=== PATIENT | male | born 1995 | race Caucasian/White ===

== ENCOUNTER 2016-09-14 05:26 | Emergency (ER) | payer SELFPAY ==
[2016-09-14] MEDS ORDERED: Clindamycin CAP* 150 MG PO ONE (06:03)
[2016-09-14] MEDS ORDERED: Ibuprofen TAB* 800 MG PO ONE (06:03)
[2016-09-14 06:29] VITALS: BP 128/72
--- NOTE | 2016-09-14 06:33 | ED ---
Blaine Ambriz Erika, scribed for Clement Hoyos MD on 09/14/16 at 0608 . Throat Pain/Nasal Congestion - HPI Summary HPI Summary: Patient is a 21-year-old male presenting to the ED with a CC of constant right- sided dental pain starting at 04:50 today. Patient reports that the pain woke him from his sleep. Pain was not alleviated by Tylenol or rinsing with Listerine. Patient also states that 4-5 days ago, a filling fell out from the right side. He has not made a dental appointment, and states he has not seen a dentist in a long time. - History of Current Complaint Chief Complaint: EDDentalPain Time Seen by Provider: 09/14/16 06:01 Hx Obtained From: Patient Onset/Duration: Sudden Onset, Lasting Minutes, Still Present Severity: Moderate - Allergies/Home Medications Allergies/Adverse Reactions: Allergies Allergy/AdvReac Type Severity Reaction Status Date / Time Penicillins Allergy Unknown Verified 02/18/15 15:30 Reaction Details PMH/Surg Hx/FS Hx/Imm Hx Previously Healthy: Yes Endocrine/Hematology History: Denies: Hx Diabetes Cardiovascular History: Denies: Hx Hypertension Infectious Disease History: No Infectious Disease History: Denies: Hx Clostridium Difficile, Hx Hepatitis, Hx Human Immunodeficiency Virus (HIV), Hx of Known/Suspected MRSA, Hx Shingles, Hx Tuberculosis, Hx Known/ Suspected VRE, Hx Known/Suspected VRSA, History Other Infectious Disease, Traveled Outside the [place] in Last 30 Days - Family History Known Family History: Positive: Diabetes - Social History Alcohol Use: Rare Hx Substance Use: Yes Substance Use Type: Reports: Marijuana Hx Tobacco Use: Yes Smoking Status (MU): Former Smoker Type: Cigars Amount Used/How Often: occasional Review of Systems Positive: Dental Pain Negative: Myalgia All Other Systems Reviewed And Are Negative: Yes Physical Exam Triage Information Reviewed: Yes Vital Signs On Initial Exam: Initial Vitals Temp Pulse Resp BP Pulse Ox 99.3 F 74 18 126/79 97 09/14/16 05:31 09/14/16 05:31 09/14/16 05:31 09/14/16 05:31 09/14/16 05:31 Vital Signs Reviewed: Yes Appearance: Positive: No Pain Distress, Thin Skin: Positive: Warm Head/Face: Positive: Normal Head/Face Inspection Eyes: Positive: CELINA ENT: Positive: Hearing grossly normal Dental: Positive: Gross Decay/Caries @ Neck: Positive: Supple, Nontender Respiratory/Lung Sounds: Positive: Breath Sounds Present Neurological: Positive: Alert, Oriented to Person Place, Time Diagnostics - Vital Signs Vital Signs Temp Pulse Resp BP Pulse Ox 09/14/16 05:31 99.3 F 74 18 126/79 97 - Laboratory Lab Statement: Any lab studies that have been ordered have been reviewed, and results considered in the medical decision making process. EENT Course/Dx - Course Assessment/Plan: A 21 y/o M presents to the ED with a CC of dental pain. Pt reports a filling felt out 4-5 days ago. Pain was not alleviated by Tylenol. Pt is allergic to penicillin, so is given clindamycin as well as ibuprofen for the pain. Patient will be discharged home and recommended to follow up with a dentist. - Diagnoses Provider Diagnoses: Dental decay Discharge - Discharge Plan Condition: Stable Disposition: HOME Prescriptions: Clindamycin CAP* [Cleocin 150 MG CAP*] 300 mg PO Q6H #56 cap Ibuprofen TAB* [Motrin TAB* 600 MG] 600 mg PO Q6H #30 tab Patient Education Materials: Toothache (ED) Referrals: Shoaib Riley MD [Primary Care Provider] - Additional Instructions: Please follow up with your dentist. The documentation as recorded by the Blaine cowart Erika accurately reflects the service I personally performed and the decisions made by , Clement Hoyos MD.
== END 2016-09-14 06:28 | disposition home or self-care (01) ==
LOC: ED 05:26
DX: K02.9 Dental caries, unspecified (principal); K08.89 Other specified disorders of teeth and supporting structures; Z87.891 Personal history of nicotine dependence
CPT/HCPCS: 99282; A9270-GY

== ENCOUNTER 2018-03-06 18:55 | Emergency (ER) | payer SELFPAY ==
[2018-03-06 19:42] VITALS: BP 101/62
[2018-03-06] MEDS ORDERED: Lidocaine 1%* 5 ML VIAL INJ ONE (19:55)
--- NOTE | 2018-03-06 20:09 | ED ---
Laceration/Wound HPI - HPI Summary HPI Summary: 22-year-old male presents with left index finger laceration today. He states he cut it while cutting some lettuce today at work. He states the area continues to bleed. He is unsure when his last tetanus was. No numbness or tingling. No foreign body in the wound. No other injury. He has no medical conditions. - History of Current Complaint Stated Complaint: FINGER LACERATION Time Seen by Provider: 03/06/18 19:39 Pain Intensity: 2 PMH/Surg Hx/FS Hx/Imm Hx Endocrine/Hematology History: Denies: Hx Diabetes Cardiovascular History: Denies: Hx Hypertension EENT History: Denies: Hx Deafness Infectious Disease History: No Infectious Disease History: Denies: Hx Clostridium Difficile, Hx Hepatitis, Hx Human Immunodeficiency Virus (HIV), Hx of Known/Suspected MRSA, Hx Shingles, Hx Tuberculosis, Hx Known/ Suspected VRE, Hx Known/Suspected VRSA, History Other Infectious Disease, Traveled Outside the in Last 30 Days - Family History Known Family History: Positive: Diabetes - Social History Alcohol Use: Rare Hx Substance Use: Yes Substance Use Type: Reports: Marijuana Substance Use Comment - Amount & Last Used: daily Hx Tobacco Use: Yes Smoking Status (MU): Never Smoked Tobacco Type: Cigars Amount Used/How Often: occasional Review of Systems Negative: Fever Negative: Chest Pain Negative: Shortness Of Breath Positive: Other - lac left index finger All Other Systems Reviewed And Are Negative: Yes Physical Exam Triage Information Reviewed: Yes Vital Signs On Initial Exam: Initial Vitals Temp Pulse Resp BP Pulse Ox 98.2 F 64 16 101/62 100 03/06/18 19:38 03/06/18 19:38 03/06/18 19:38 03/06/18 19:38 03/06/18 19:38 Vital Signs Reviewed: Yes Appearance: Positive: Well-Appearing Skin: Positive: Warm, Dry, Other - 2cm superficial flap like laceration of distal phlanx left index finger Head/Face: Positive: Normal Head/Face Inspection Eyes: Positive: Normal, Conjunctiva Clear ENT: Positive: Pharynx normal Respiratory/Lung Sounds: Positive: Clear to Auscultation, Breath Sounds Present Cardiovascular: Positive: Normal, RRR Musculoskeletal: Positive: Strength/ROM Intact - left index finger, Other - capillary refill<2secs Neurological: Positive: Normal Psychiatric: Positive: Normal Procedures - Laceration/Wound Repair 1 Location: Other - left index finger Description: Linear Length, Depth and Shape: 2cm superficial flap like Irrigated w/ Saline (ccs): 50 Laceration/Wound Explored: no foreign body removed Closure: Skin Adhesive, SteriStrips Diagnostics - Vital Signs Vital Signs Temp Pulse Resp BP Pulse Ox 03/06/18 19:38 98.2 F 64 16 101/62 100 - Laboratory Lab Statement: Any lab studies that have been ordered have been reviewed, and results considered in the medical decision making process. Laceration Repair Course/Dx - Course Course Of Treatment: 22-year-old male presents with left index finger laceration today. He states he cut it while cutting some lettuce today at work. He states the area continues to bleed. He is unsure when his last tetanus was. No numbness or tingling. No foreign body in the wound. No other injury. He has no medical conditions. on exam has 2cm superficial laceration to left index finger. cleaned and area and place glue and sterristrips. told to keep area dry. patient understand and agrees with plan. - Differential Dx Differental Diagnoses: Abrasion, Avulsion, Laceration - Clinical Impression Provider Diagnoses: Laceration of left index finger Discharge - Sign-Out/Discharge Documenting (check all that apply): Patient Departure All imaging exams completed and their final reports reviewed: No Studies - Discharge Plan Condition: Good Disposition: HOME Patient Education Materials: Skin Adhesive Care (ED) Referrals: Shoaib Riley MD [Primary Care Provider] - Additional Instructions: Place ice on area Take Tylenol or ibuprofen for pain as needed every 6 hours Keep dry for 24 hours, after that do not soak area Glue will fall off on own Avoid scrubbing area Return to ED if develop any signs of infection or any new or worsening symptoms - Billing Disposition and Condition Condition: GOOD Disposition: Home
[2018-03-06] MEDS ORDERED: Tetan/Diph/Pertus SYR(Tdap)* 0.5 ML SYR(BOOSTRIX) use SYR IM ONE (20:11)
== END 2018-03-06 20:40 | disposition home or self-care (01) ==
LOC: UCEAST 18:55
DX: S61.211A Laceration without foreign body of left index finger without damage to nail, initial encounter (principal); W26.0XXA Contact with knife, initial encounter; Y93.G1 Activity, food preparation and clean up; Y92.89 Other specified places as the place of occurrence of the external cause; Y99.0 Civilian activity done for income or pay
CPT/HCPCS: 12001; 90715; 99211; G0463

== ENCOUNTER 2018-05-25 10:03 | Emergency (ER) | payer SELFPAY ==
[2018-05-25] MEDS ORDERED: Ondansetron ODT TAB* 4 MG PO ONE (12:06)
--- NOTE | 2018-05-25 12:12 | UC ---
Nausea/Vomiting/Diarrhea HPI - HPI Summary HPI Summary: 22-year-old male comes in with a chief complaint of nausea and vomiting. Started this morning he's vomited several times since he woke up. He does have a right lower molar area swelling dental abscess which he wonders if that's the cause of the vomiting. The swelling started about 4-5 days ago got a little better than got worse again. The dental pain is worse when he pushes on it otherwise is not better he doesn't push on. Patient only has abdominal pain when he is vomiting. Patient did have an episode of chest pain was mid sternal and sharp it hurt worse when he was taking a deep breath. It is not short of breath with it. No radiation of the pain. The chest pains gone now. No fevers or chills. - History of Current Complaint Chief Complaint: UCAbdominalPain Stated Complaint: VOMITING, AND ABDOMINAL PAIN Time Seen by Provider: 05/25/18 11:59 Pain Intensity: 5 - Allergies/Home Medications Allergies/Adverse Reactions: Allergies Allergy/AdvReac Type Severity Reaction Status Date / Time No Known Allergies Allergy Verified 05/25/18 10:11 PMH/Surg Hx/FS Hx/Imm Hx Previously Healthy: Yes - Surgical History Surgical History: None - Family History Known Family History: Positive: Diabetes - Social History Alcohol Use: Rare Substance Use Type: Marijuana Substance Use Comment - Amount & Last Used: daily Smoking Status (MU): Never Smoked Tobacco Type: Cigars Amount Used/How Often: occasional - Immunization History Most Recent Tetanus Shot: unknown Review of Systems All Other Systems Reviewed And Are Negative: Yes Constitutional: Positive: Negative Skin: Positive: Negative Eyes: Positive: Negative ENT: Positive: Other - SEE HPI Respiratory: Positive: Negative Cardiovascular: Positive: Chest Pain Gastrointestinal: Positive: Vomiting Motor: Positive: Negative Neurovascular: Positive: Negative Musculoskeletal: Positive: Negative Neurological: Positive: Negative Psychological: Positive: Negative Is Patient Immunocompromised?: No Physical Exam Triage Information Reviewed: Yes Appearance: No Pain Distress, Well-Nourished, Ill-Appearing - MILD Vital Signs: Initial Vital Signs Temp 98 F 05/25/18 10:08 Pulse 66 05/25/18 10:08 Resp 16 05/25/18 10:08 BP 100/65 05/25/18 10:08 Pulse Ox 100 05/25/18 10:08 Vital Signs Reviewed: Yes Eye Exam: Normal Eyes: Positive: Conjunctiva Clear ENT: Positive: Pharynx normal. Negative: Nasal drainage Dental: Positive: Other: - The right lower jaw patient has molars with caries and gingival swelling. There is some swelling of the cheek at that location. Neck exam: Normal Neck: Positive: Supple Respiratory Exam: Normal Respiratory: Positive: Lungs clear, Normal breath sounds, No respiratory distress Cardiovascular Exam: Normal Cardiovascular: Positive: RRR Abdomen Description: Positive: Nontender, Soft Musculoskeletal Exam: Normal Musculoskeletal: Positive: Strength Intact, ROM Intact Neurological Exam: Normal Neurological: Positive: Alert, Muscle Tone Normal Psychological Exam: Normal Psychological: Positive: Normal Response To Family, Age Appropriate Behavior Skin Exam: Normal Naus/Vom/Diarrhea Course/Dx - Course Course Of Treatment: The dental abscess is probably the cause of the nausea and vomiting. We talked review chest x-ray and EKG for the chest pain. The patient declined the pain is almost gone now. Patient is low risk for cardiac issues and has no continuing shortness of breath. The overall plan is to treat with Zofran for the nausea and amoxicillin for the dental abscess. Get rechecked if needed. - Differential Dx/Diagnosis Provider Diagnoses: DENTAL ABSCESS. NAUSEA AND VOMITNG. CHEST PAIN Discharge - Sign-Out/Discharge Documenting (check all that apply): Patient Departure All imaging exams completed and their final reports reviewed: No Studies - Discharge Plan Condition: Stable Disposition: HOME Prescriptions: Amoxicillin PO (*) [Amoxicillin 500 MG CAP*] 500 mg PO TID #30 cap Ondansetron ODT TAB* [Zofran 4 MG Odt TAB*] 4 mg PO Q6H PRN #15 tab.odt PRN Reason: Nausea Patient Education Materials: Dental Abscess (ED), Acute Nausea and Vomiting (ED ), Chest Pain (ED) Forms: *Work Release Referrals: Shoaib Riley MD [Primary Care Provider] - Additional Instructions: FOLLOW UP WITH YOUR DOCTOR IF NOT COMPLETELY IMPROVED. GET RECHECKED FOR ANY WORSENING OF YOUR CONDITION OR QUESTIONS OR CONCERNS. - Billing Disposition and Condition Condition: STABLE Disposition: Home
[2018-05-25 12:32] VITALS: BP 137/85
== END 2018-05-25 12:30 | disposition home or self-care (01) ==
LOC: UCEAST 10:03
DX: K04.7 Periapical abscess without sinus (principal); R11.2 Nausea with vomiting, unspecified; R07.9 Chest pain, unspecified
CPT/HCPCS: 99212; A9270-GY; G0463

== ENCOUNTER 2019-02-22 09:27 | Emergency (ER) | payer SELFPAY ==
[2019-02-22 09:39] VITALS: BP 102/60
--- NOTE | 2019-02-22 09:45 | UC ---
Ear Complaint HPI - HPI Summary HPI Summary: Patient is a healthy 23-year-old male here with right ear issues. Patient woke up this morning with his right ear feeling plugged. Patient has no fever, chills, sore throat, nasal congestion. Patient had a similar issue 3 years ago and required ear irrigation to "deplug" his ear. Medications reviewed - History of Current Complaint Chief Complaint: UCEar Stated Complaint: PLUGGED EAR Time Seen by Provider: 02/22/19 09:41 Hx Obtained From: Patient Onset/Duration: Sudden Onset Severity Initially: Mild Severity Currently: Mild Pain Intensity: 0 - Allergies/Home Medications Allergies/Adverse Reactions: Allergies Allergy/AdvReac Type Severity Reaction Status Date / Time No Known Allergies Allergy Verified 02/22/19 09:39 Home Medications: Home Medications NK [No Home Medications Reported] 02/22/19 [History Confirmed 02/22/19] PMH/Surg Hx/FS Hx/Imm Hx Previously Healthy: Yes - Surgical History Surgical History: None - Family History Known Family History: Positive: Diabetes, Non-Contributory - Social History Alcohol Use: Rare Substance Use Type: Marijuana Substance Use Comment - Amount & Last Used: daily Smoking Status (MU): Never Smoked Tobacco Type: Cigars Amount Used/How Often: occasional - Immunization History Most Recent Tetanus Shot: unknown Review of Systems All Other Systems Reviewed And Are Negative: Yes Constitutional: Negative: Fever, Chills Eyes: Negative: Drainage ENT: Negative: Sore Throat, Ear Ache, Nasal Discharge Physical Exam - Summary Physical Exam Summary: Vital Signs Reviewed: Yes A+Ox3, no distress Eyes: Conjunctiva Clear ENT: Large quantity of cerumen in the right ear neck: supple Respiratory: Positive: No respiratory distress, No accessory muscle use Cardiovascular: skin color reflect adequate perfusion Musculoskeletal Exam: JACKSON x 4 without difficulty Neurological: Positive: Alert, ambulatory without difficulty Vital Signs: Initial Vital Signs Temp 98.6 F 02/22/19 09:37 Pulse 73 02/22/19 09:37 Resp 16 02/22/19 09:37 BP 102/60 02/22/19 09:37 Pulse Ox 99 02/22/19 09:37 Procedures - Procedure Summary Procedure Summary: Patient had cerumen removed from his right ear. A curette was used to remove a large quantity of dark cerumen. Ear was then irrigated with saline. Ear Complaint Course/Dx - Course Course Of Treatment: Patient is here with cerumen impaction on the right ear. Patient had successful removal of the cerumen. Patient was educated on [id number] kits to combat the grocery store. - Differential Dx/Diagnosis Differential Diagnosis/HQI/PQRI: Cerumen Impaction, Otitis Externa, Otitis Media , Perforated TM, URI Provider Diagnosis: Cerumen impaction Discharge - Sign-Out/Discharge Documenting (check all that apply): Patient Departure All imaging exams completed and their final reports reviewed: No Studies - Discharge Plan Condition: Stable Disposition: HOME Patient Education Materials: Cerumen Impaction (ED) Referrals: Shoaib Riley MD [Primary Care Provider] - Additional Instructions: Please go to the grocery store and buy an ear irrigation next time you feel your ears plugged - Billing Disposition and Condition Condition: STABLE Disposition: Home
== END 2019-02-22 10:04 | disposition home or self-care (01) ==
LOC: UCEAST 09:27
DX: H61.21 Impacted cerumen, right ear (principal)
CPT/HCPCS: 99212; G0463

== ENCOUNTER 2019-09-10 09:50 | Emergency (ER) | payer SELFPAY ==
[2019-09-10 10:14] VITALS: BP 109/60
--- NOTE | 2019-09-10 11:20 | UC ---
Dental HPI - HPI Summary HPI Summary: 24 yo male presents with dental pain. He tells me that he has a broken tooth to his right upper teeth. Over the last week has had increased pain here and over the last 2-3 days with swelling. He has been taking ibuprofen with good relief. He has a dentist, but has not scheduled an appointment yet. he is eating and drinking well. Denies fever. - History of Current Complaint Chief Complaint: UCDentalProblem Stated Complaint: FACIAL SWELLING DENTAL PAIN Time Seen by Provider: 09/10/19 11:20 Hx Obtained From: Patient Onset/Duration: Gradual Onset Severity: Moderate Pain Intensity: 5 Pain Scale Used: 0-10 Numeric - Allergies/Home Medications Allergies/Adverse Reactions: Allergies Allergy/AdvReac Type Severity Reaction Status Date / Time No Known Allergies Allergy Verified 09/10/19 10:14 Home Medications: Home Medications Ondansetron ODT TAB* [Zofran 4 MG Odt TAB*] 4 mg PO Q8H PRN #12 tab.odt [Rx] clindamycin HCL [Clindamycin HCl] 300 mg PO TID #21 capsule 09/10/19 [Rx] PMH/Surg Hx/FS Hx/Imm Hx - Additional Past Medical History Additional PMH: None - Surgical History Surgical History: None - Family History Known Family History: Positive: Diabetes, Non-Contributory - Social History Occupation: Employed Full-time Lives: With Family Alcohol Use: Rare Substance Use Type: Marijuana Substance Use Comment - Amount & Last Used: daily Smoking Status (MU): Never Smoked Tobacco Type: Cigars Amount Used/How Often: occasional - Immunization History Most Recent Tetanus Shot: unknown Review of Systems All Other Systems Reviewed And Are Negative: No Constitutional: Positive: Negative Skin: Positive: Negative Eyes: Positive: Negative ENT: Positive: Dental Pain Respiratory: Positive: Negative Cardiovascular: Positive: Negative Neurovascular: Positive: Negative Neurological/Mental Status: Positive: Negative Psychological: Positive: Negative Physical Exam - Summary Physical Exam Summary: GENERAL: NAD. WDWN. No pain distress. SKIN: No rashes, sores, lesions, or open wounds. HEENT: Nose: Nasal mucosa pink and moist. Mild TTP right maxillary sinus with mild edema. Throat: Posterior oropharynx without exudates, erythema, or tonsillar enlargement. Uvula midline. NECK: Supple. Nontender. No lymphadenopathy. CHEST: CTAB. No r/r/w. No accessory muscle use. Breathing comfortably and in no distress. CV: RRR. Pulses intact. Cap refill <2seconds NEURO: Alert. PSYCH: Age appropriate behavior. Triage Information Reviewed: Yes Vital Signs: Initial Vital Signs Temp 98 F 09/10/19 10:11 Pulse 64 09/10/19 10:11 Resp 15 09/10/19 10:11 BP 109/60 09/10/19 10:11 Pulse Ox 100 09/10/19 10:11 Vital Signs Reviewed: Yes Dental: Positive: Percussion Tenderness @ - Tooth #5, Gross Decay/Caries @ - throughout, Dental Fracture @ - Tooth #5, Abscess @ - Tooth #5. Negative: Cellulitis @, Cervical Lymphadenopathy, Bleeding Dental Complaint Course/Dx - Course Course Of Treatment: Tooth #5 abscess - Differential Dx/Diagnosis Provider Diagnosis: Dental abscess Discharge ED - Sign-Out/Discharge Documenting (check all that apply): Patient Departure All imaging exams completed and their final reports reviewed: No Studies - Discharge Plan Condition: Stable Disposition: HOME Prescriptions: clindamycin HCL [Clindamycin HCl] 300 mg PO TID #21 capsule Ondansetron ODT TAB* [Zofran 4 MG Odt TAB*] 4 mg PO Q8H PRN #12 tab.odt PRN Reason: Nausea Patient Education Materials: Dental Abscess (ED) Forms: *Work Release Referrals: Shoaib Riley MD [Primary Care Provider] - Additional Instructions: If you develop a fever, shortness of breath, chest pain, new or worsening symptoms - please call your PCP or go to the ED immediately. Please schedule an appointment with your dentist for further evaluation. - Billing Disposition and Condition Condition: STABLE Disposition: Home
== END 2019-09-10 11:41 | disposition home or self-care (01) ==
LOC: UCEAST 09:50
DX: K04.7 Periapical abscess without sinus (principal)
CPT/HCPCS: 99212; G0463